=== PATIENT | male | born 2000 | race Caucasian/White ===

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

== ENCOUNTER 2022-02-21 00:44 | Emergency (ER) | payer MEDICAID, OTHER ==
[2022-02-21 01:04] VITALS: BP 126/78
== END 2022-02-21 01:53 | disposition left against medical advice (07) ==
LOC: ED 00:44
DX: Z53.21 Procedure and treatment not carried out due to patient leaving prior to being seen by health care provider (principal)